=== PATIENT | male | born 1950 | race African-American/Black ===

== ENCOUNTER 2022-09-24 22:16 | Emergency (ER) | payer MEDICARE ==
[~2022-09-24] VITALS: Ht 160 cm; Wt 80.0 kg
[2022-09-24 22:20] VITALS: BP 125/71
== END 2022-09-25 02:46 | disposition left against medical advice (07) ==
LOC: ER 22:17
DX: K92.2 Gastrointestinal hemorrhage, unspecified (principal); Z53.21 Procedure and treatment not carried out due to patient leaving prior to being seen by health care provider
CPT/HCPCS: 99281

== ENCOUNTER 2024-11-24 16:29 | Outpatient (CLI) | payer MEDICARE, MEDICAID ==
--- NOTE | 2024-11-24 19:09 | RADIOLOGY REPORT ---
EXAM: MR MRI LOWER EXTREMITY RIGHT HISTORY: PAIN IN RIGHT KNEE COMPARISON: None TECHNIQUE: Multiplanar, multisequence imaging of the right knee was performed without contrast FINDINGS: MEDIAL COMPARTMENT: Intact medial meniscus. No focal chondrosis or subchondral edema. LATERAL COMPARTMENT: Intact lateral meniscus. No focal chondrosis or subchondral edema. PATELLOFEMORAL COMPARTMENT: Broad-based full-thickness cartilage loss at the superior aspect of the l ateral patellar facet. No underlying subchondral edema. CRUCIATE LIGAMENTS: Intact anterior and posterior cruciate ligaments. MEDIAL SUPPORTING STRUCTURES: Intact medial collateral ligament. LATERAL SUPPORTING STRUCTURES: Intact iliotibial band, lateral capsular ligament, fibular collateral ligament, popliteus, and biceps femoris tendons EXTENSOR MECHANISM: Intact JOINT SPACE/FLUID: No joint effusion. BONES: No acute fracture, osseous contusion, or aggressive focal osseous lesion MUSCLES: Normal in signal intensity and morphology NEUROVASCULAR: Unremarkable OTHER: None IMPRESSION: 1. No MR evidence of significant internal derangement. 2. Broad-based full-thickness cartilage loss at the superior aspect of the lateral patellar facet.
--- NOTE | 2024-11-24 19:23 | RADIOLOGY REPORT ---
EXAM: MR MRI LOWER EXTREMITY LEFT HISTORY: PAIN IN LEFT KNEE COMPARISON: None TECHNIQUE: Multiplanar, multisequence imaging of the left knee was performed without contrast FINDINGS: MEDIAL COMPARTMENT: Inner 1/3 posterior body medial meniscal tear extending to the inferior meniscal surface (series 4, image 14). No focal chondrosis or subchondral edema. LATERAL COMPARTMENT: Intact lateral meniscus. No focal chondrosis or subchondral edema. PATELLOFEMORAL COMPARTMENT: Partial-thickness chondrosis of the mesial aspect of the lateral patellar facet are CRUCIATE LIGAMENTS: Intact anterior and posterior cruciate ligaments. MEDIAL SUPPORTING STRUCTURES: Intact medial collateral ligament. LATERAL SUPPORTING STRUCTURES: Intact iliotibial band, lateral capsular ligament, fibular collateral ligament, popliteus, and biceps femoris tendons EXTENSOR MECHANISM: Intact JOINT SPACE/FLUID: No joint effusion. BONES: No acute fracture, osseous contusion, or aggressive focal osseous lesion MUSCLES: Normal in signal intensity and morphology NEUROVASCULAR: Unremarkable OTHER: None IMPRESSION: 1. Inner 1/3 posterior body medial meniscal tear extending to the inferior meniscal surface.
== END 2024-11-24 23:59 | disposition home or self-care (01) ==
LOC: MRI02 16:29
PROVIDERS: ATTEND Family Medicine
DX: S83.242A Other tear of medial meniscus, current injury, left knee, initial encounter (principal); M25.561 Pain in right knee; M25.562 Pain in left knee; G89.29 Other chronic pain; M17.0 Bilateral primary osteoarthritis of knee; M94.8X6 Other specified disorders of cartilage, lower leg; X58.XXXA Exposure to other specified factors, initial encounter; Y93.89 Activity, other specified; Y92.89 Other specified places as the place of occurrence of the external cause; Y99.8 Other external cause status
CPT/HCPCS: 73721

== ENCOUNTER 2025-03-15 09:34 | Day surgery (SDC) | payer MEDICARE, MEDICAID ==
[2025-03-11 14:11] LABS: MEAN PLATELET VOLUME 8.5 FL (7.4-10.4); RED CELL DISTRIBUTION WIDTH 14.3 % (11.5-14.5)
[2025-03-11 14:28] LABS: CHOL/HDL RATIO 3.9 (0.00-4.99); CREATININE 1.08 MG/DL (0.60-1.10); LDL CHOLESTEROL 121 MG/DL (50-100); TOTAL CARBON DIOXIDE 29.0 MMOL/L (24-32); eGFR 81 ML/MIN
[2025-03-15] VITALS (8 sets, daily range): BP systolic 117–141; BP diastolic 65–83; PULSE 66–78; RESP 14–16; TEMP 97.9; O2SAT 93–99
[~2025-03-15] VITALS: Ht 160 cm; Wt 71.9 kg
[~2025-03-15 09:34] MED LIST: AMLO10TA13 PO; CARV3.1244 PO; DIPH25CA83 PO; FERR325T29 PO; ISOS30TA84 PO; METF-1203 PO; PANT40TA54 PO; POTA-205; PRED10TA23 PO
--- NOTE | 2025-03-15 10:07 | ELECTROCARDIOGRAPH REPORT ---
[facility] Test Date: 2025-03-15 Test Time: 10:05:34 Pat Name: SHELBIE BAILEY Department: [facility] Patient ID: [id number] Room: Gender: M [employer]: archie : 1950 Requested By: IMAN SHAH Order Number: [id number] Reading MD: Dr. JADE Jang Measurements Intervals [place] Rate: 75 P: 70 [place]: 152 QRS: 46 QRSD: 80 T: 37 QT: 357 QTc: 399 Interpretive Statements Sinus rhythm Electronically Signed On 03-15-2025 17:18:[address] JADE Jang Please click the below link to view image of tracing.
[2025-03-15 10:41] LABS: INR 1.1 INR
[2025-03-15] MEDS ORDERED: nitroGLYCERIN 500mcg/5mL D5W 5 ML IV ONE (11:55)
[2025-03-15] MEDS ORDERED: fentaNYL/PF 50MCG/1 ML 2ML syringe ONE (11:56)
[2025-03-15] MEDS ORDERED: midazolam 1 mg/ML 2ml injection ONE (11:56)
[2025-03-15] MEDS ORDERED: LIDOcaine 1% (10mg/ml) 2ml vial ONE (11:56)
[2025-03-15] MEDS ORDERED: heparin 1,000unit/ml 10ml vial 10 ML ONE (11:56)
[2025-03-15] MEDS ORDERED: verapamil 2.5 mg/ml inj IV ONE (11:56)
[2025-03-15] MEDS ORDERED: ondansetron/PF 4mg/2ml inj IV PRN (14:15)
[2025-03-15] MEDS ORDERED: OXAZEpam 15mg capsule PO PRN (14:15)
[2025-03-15] MEDS ORDERED: RANO500T6 PO (14:34)
--- NOTE | 2025-03-20 20:23 | CARDIOLOGY REPORT ---
DATE OF SERVICE: 03/15/2025 DICTATING PHYSICIAN: Neida Norwood MD CARDIAC CATHETERIZATION REPORT DATE OF STUDY: 03/15/2025 PROCEDURES: * Left heart catheterization. * Selective coronary angiography. * Left ventriculography. * Conscious sedation monitoring time for 15 minutes. INDICATION: Continued chest pain. PHYSICIAN: Petr Norwood M.D. DESCRIPTION OF PROCEDURE: After informed consent was obtained, the patient was brought to the cardiac casting house laborer in a fasting state where the patient was prepped and draped in the usual sterile manner. After adequate anesthesia was obtained using 1% lidocaine to the right wrist, a 5-Japanese sheath was inserted into the right radial artery using a modified Seldinger technique. Thereafter, using a cocktail of heparin, verapamil and nitroglycerin, the cocktail was given via the sheath in the radial artery to prevent coronary vasospasm and for anticoagulation. Next, using an ultimate-2 catheter, the catheter was advanced under fluoroscopy guidance into the ascending aorta. The catheter was then manipulated to engage the left coronary system and coronary angiography of the left system was obtained. Next, the catheter was disengaged and manipulated to engage the right coronary artery and selective coronary angiography of the right coronary artery was obtained. Thereafter, the catheter was disengaged from the right coronary artery and manipulated to advance into the left ventricle where left ventriculography in the ULLOA position was obtained. The catheter was then removed. Hemostasis was obtained using the radial band. HEMODYNAMICS: For the patient's hemodynamics, please refer to the event log. Left ventricular end diastolic pressure is 22 mmHg. FINDINGS: The left main coronary artery is a medium caliber vessel free of significant disease. The left anterior descending coronary artery is also a medium caliber vessel with a 50% stenosis of the mid LAD. Bridging of the LAD at the stenosis is also noted. Distal 40% LAD is also noted. The circumflex coronary artery is also a medium caliber vessel with mild luminal irregularities. The right coronary artery is a small caliber vessel that is severely diseased in its midportion. Appears to be a bridging collateral. Left to right collaterals are noted. The left ventricle was crossed. Left ventricular end diastolic pressure is 22 mmHg. 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 Almost appears as a bridging collateral. Left to right collateral is noted. Medical management recommended. * Left ventricle and diastolic pressure is 22 mmHg. Neida Norwood MD TID: [id number] RECEIPT: [id number] SARWAT/SARAHY
== END 2025-03-15 16:25 | disposition home or self-care (01) ==
LOC: SSTAY O 09:34
PROVIDERS: ATTEND Student in an Organized Health Care Education/Training Program
DX: R07.2 Precordial pain (principal); I25.10 Atherosclerotic heart disease of native coronary artery without angina pectoris; I10 Essential (primary) hypertension; E11.9 Type 2 diabetes mellitus without complications; E78.00 Pure hypercholesterolemia, unspecified; Z79.84 Long term (current) use of oral hypoglycemic drugs; Z79.899 Other long term (current) drug therapy; Z91.041 Radiographic dye allergy status; Z88.8 Allergy status to other drugs, medicaments and biological substances
CPT/HCPCS: 36415; 80048; 80061; 83695; 85025; 85610; 93005; 93458; 99152; A6258; A6402; C1894; J1644; J2003; J2250; J3010; J3490; J7030; Q0163; Q9967; Z7610